=== PATIENT | female | born 1990 | race African-American/Black ===

== ENCOUNTER 2017-02-05 06:47 | Inpatient (IN) | payer MEDICAID, OTHER ==
[2017-02-05] VITALS (13 sets, daily range): BP systolic 89–110; BP diastolic 57–72; PULSE 61–97; RESP 18–20; TEMP 98.1–98.8
[~2017-02-05 06:47] MED LIST: AMOX500C PO; METR0.7512 VAGINAL; TERC0.8C VAGINAL
[2017-02-05] MEDS ORDERED: LACTATED RINGER'S 1000 ML INJ 1,000 ML IV SCH (07:37)
[2017-02-05] MEDS ORDERED: LACTATED RINGER'S 1000 ML INJ 1,000 ML IV PRN (07:37)
--- NOTE | 2017-02-05 07:37 | PD ---
HPI Chief Complaint Contractions with leaking from the vagina at around 0600 Date Seen: Feb 05, 2017 Time Seen: 07:34 Travel History International Travel<30 Days: No Contact w/Intl Traveler<30Days: No Known Affected Area: No History of Present Illness HPI 27-year-old who is at 37 weeks 4 days complains of contractions irregularly the began this morning associated with leaking of clear fluid per vagina at about 06 100 today. Patient denies any antepartum complications and she has had 2 prior uncomplicated spontaneous vaginal deliveries. She is group B strep positive with no drug allergies. Last cervical examination was 2 cm proximally 1 week ago Weeks Gestation: 37 Para: 2 : 3 History Past Medical History Medical History: Denies Significant Hx Obstetric History Obstetric History Spontaneous vaginal delivery 2, 5 lbs. 9 oz., 7 lbs. 2 oz. Past Surgical History Surgical History: No Previous Surgery Family History Family History: Negative Social History Alcohol Use: No Tobacco Use: No Substance Abuse: No Allergies-Medications (Allergen,Severity, Reaction): Coded Allergies: No Known Allergies (Unverified Adverse Reaction, Unknown, 01/31/17) Home Meds Active Scripts Metronidazole Vaginal Gel (Metronidazole Vaginal Gel) 0.75 % Gel, 1 APPL VAGINAL HS for Infection for 5 Days, #1 GM 1 [facility] Terconazole Vaginal Cream (Terconazole Vaginal Cream) 0.8 % Cream, 1 APPL VAGINAL HS for Fungal Infection, #20 GM 1 Refill For 3 days. Prov:Sigrid Coelho CNM [facility] 02/01/17 Amoxicillin (Amoxicillin) 500 Mg Cap, 500 MG PO QID for Infection for 7 Days, # 28 CAP 0 Refills Prov:Sigrid Coelho CNM [facility] 01/31/17 Discontinued Scripts Terconazole Vaginal Cream (Terconazole Vaginal Cream) 0.8 % Cream, 1 APPL VAGINAL HS for Fungal Infection, #20 GM 1 Refill For 3 days. Prov:Sigrid Coelho CNM [facility] 01/24/17 Review of Systems Except as stated in HPI: all other systems reviewed are Neg Physical Exam Narrative GENERAL: Well-nourished, well-developed patient. SKIN: Warm and dry. HEAD: Normocephalic and atraumatic. EYES: No scleral icterus. No injection or drainage. ENT: No nasal drainage noted. Mucous membranes pink. Airway patent. NECK: Supple, trachea midline. No JVD. CARDIOVASCULAR: Regular rate and rhythm without murmurs, gallops, or rubs. RESPIRATORY: Breath sounds equal bilaterally. No accessory muscle use. ABDOMEN/GI: Abdomen soft, non-tender, bowel sounds present, no rebound, no guarding Gravid to [34-] weeks size Fundal Height: [-] GENITOURINARY: External Genitalia: intact and normal in appearance BUS glands: [-Normal] Cervix: [-Posterior] Dilatation: [3-] Effacement: [-80] Station: [--3] Presentation: [-Vertex] Membranes: ruptured positive amnisure Uterine Contractions: [-Every 10 minutes] FHT's: Category: [1-] Baseline: [-140] Reactive: [Moderate-] Variability: [Moderate-] Decels: [-Absent] EXTREMITIES: No cyanosis or edema. BACK: Nontender without obvious deformity. No CVA tenderness. NEUROLOGICAL: Awake and alert. Motor and sensory grossly within normal limits. Five out of 5 muscle strength in all muscle groups. Normal speech. Data Data Vital Signs Reviewed: Yes Group B Strep: Positive MDM Medical Record Reviewed: Yes Plan 27-year-old who is at 37 weeks 4 days with spontaneous rupture membranes and positive group B strep Admit to labor with the initiation of antibiotic prophylaxis Diagnosis Diagnosis: Primary Impression: 37 weeks gestation of Additional Impressions: Premature rupture of membranes Positive testing for group B Streptococcus Meg Ambrosio MD Feb 05, 2017 07:37
[2017-02-05] MEDS ORDERED: PENICILLIN G POTASSIUM INJ 5,000,000 UNITS in SODIUM CHLORIDE 0.9% INJ 100 ML IV ONE (07:45)
[2017-02-05] MEDS ORDERED: LIDOCAINE HCL 1% 50 ML VIAL I-DERMAL PRN (07:45)
[2017-02-05] MEDS ORDERED: ONDANSETRON HCL 4 MG/2 ML VIAL IV PUSH PRN (07:45)
[2017-02-05] MEDS ORDERED: OXYTOCIN 30 UNITS-500ML PREMIX 500 ML IV ONE (07:45)
[2017-02-05] MEDS ORDERED: SODIUM CHLORID 0.9% 500 ML INJ 500 ML IV PRN (07:45)
[2017-02-05] MEDS ORDERED: MINERAL OIL 10 ML VIAL TOPICAL PRN (07:45)
[2017-02-05] MEDS ORDERED: LIDOCAINE HCL 1% 50 ML VIAL INFIL PRN (07:45)
[2017-02-05] MEDS ORDERED: CITRIC ACID-SODIUM CITRATE LIQ 30 ML UDC PO SCH (07:45)
[2017-02-05] MEDS ORDERED: SODIUM CHLOR 0.9% 1000 ML INJ 1,000 ML IV PRN (07:57)
[2017-02-05 08:39] LABS: AUTOMATED NEUTROPHIL # 3.8 TH/MM3 (1.8-7.7); BASOPHIL % 0.2 % (0.0-2.0); EOSINOPHIL % 0.5 % (0.0-4.0); HEMATOCRIT 34.4 % (35.0-46.0); HEMO FLAGS DIFF FINAL; LYMPH % 26.8 % (9.0-44.0); LYMPHOCYTE # 1.6 TH/MM3 (1.0-4.8); MEAN CELL VOLUME 87.4 FL (80.0-100.0); MEAN CORPUSCULAR HEMOGLOBIN 28.5 PG (27.0-34.0); MEAN CORPUSCULAR HGB CONC 32.6 % (32.0-36.0); MONO % 9.8 % (0.0-8.0); NEUT % 62.7 % (16.0-70.0); PLATELET COUNT 196 TH/MM3 (150-450); RED BLOOD COUNT 3.93 MIL/MM3 (4.00-5.30)
[2017-02-05] MEDS ORDERED: ZOFR8TAB PO (09:28)
[2017-02-05] MEDS ORDERED: PROM25TA10 PO (09:28)
[2017-02-05] MEDS ORDERED: OXYTOCIN 30 UNITS-500ML PREMIX 500 ML IV SCH ×2 (09:30→12:45)
[2017-02-05] MEDS ORDERED: ePHEDrine/NS 25 MG/5 ML SYR ONE (11:25)
[2017-02-05] MEDS ORDERED: fentaNYL 2MCG-BUPIV 0.125% INJ 100 ML ONE (11:25)
[2017-02-05] MEDS ORDERED: PENICILLIN G POTASSIUM INJ 2,500,000 UNITS in SODIUM CHLORIDE 0.9% INJ 100 ML IV SCH (11:45)
[2017-02-05] MEDS ORDERED: SODIUM CHLORIDE 0.9% FLUSH 10 ML FLUSH IV FLUSH PRN (12:45)
[2017-02-05] MEDS ORDERED: ZOLPIDEM TARTRATE 5 MG TAB PO PRN (12:45)
[2017-02-05] MEDS ORDERED: ACETAMINOPHEN 325 MG TAB PO PRN (12:45)
[2017-02-05] MEDS ORDERED: ALUMINUM/MAGNESIUM/SIMETH 30 ML CUP PO PRN (12:45)
[2017-02-05] MEDS ORDERED: DOCUSATE SODIUM 50 MG/SENNA 8.6 MG TAB PO PRN (12:45)
[2017-02-05] MEDS ORDERED: BENZOCAINE 20% TOPICAL SPRAY 60 ML CAN TOPICAL PRN (12:45)
[2017-02-05] MEDS ORDERED: ONDANSETRON ODT 4 MG TAB PO PRN (12:45)
[2017-02-05] MEDS ORDERED: WITCH HAZEL 50%/GLYCERIN 12.5% 40 PAD JAR TOPICAL PRN (12:45)
[2017-02-05] MEDS ORDERED: oxyCODONE/ACETAMINOPHEN 5 MG/325 MG TAB PO PRN ×2 (12:45)
--- NOTE | 2017-02-05 12:46 | PD.OB.DELI ---
Weeks gestation: 37 Gest age assessed date: Feb 05, 2017 Gest age assessed time: 12:00 Pt started active labor?: Yes Medical induction of labor?: Yes Artificial rupture of membrane: No Anesthesia: Epidural Episiotomy: None Vaginal Delivery: Normal Presentation: Occiput anterior Nuchal Cord: x1 Delayed cord clamping (45 sec): Yes Infant: Male Delivery date: Feb 05, 2017 Delivery time: 12:25 One Minute : 8 Five Minute : 9 Weight: 2855 Placenta: Manual removal, Intact, 3 vessel cord Laceration: No lacerations Estimated blood loss: 300 mL Additional Information Head delivered by maternal effort. Nuchal cord 1 appreciated and reduced. Anterior shoulder delivered without complications. Placental cord torn during the third stage. Placenta manually removed by Dr. Chambers. Placenta was intact. Uterus was explored and no remnants of the placenta were appreciated. No lacerations appreciated Shmuel Mitchell MD R1 Feb 05, 2017 12:46
[2017-02-05] MEDS ORDERED: ePHEDrine/NS 25 MG/5 ML SYR IV PUSH PRN (14:15)
[2017-02-05] MEDS ORDERED: DO NOT ADMINISTER ANTICOAGULANTS PRN (14:15)
[2017-02-05] MEDS ORDERED: NO SYSTEM NARCOTICS PRN (14:15)
[2017-02-05] MEDS ORDERED: fentaNYL 2MCG-BUPIV 0.125% 100 ML EPIDURAL SCH (14:15)
[2017-02-05] MEDS ORDERED: MEASLES, MUMPS, RUBELLA VACCINE 0.5 ML VIAL SQ ONE (16:00)
[2017-02-05] MEDS ORDERED: DIPHTH/TETANUS/ACEL PERTUSSIS (BOOSTER) 0.5 ML VIAL/PFS IM ONE (16:00)
[2017-02-05] MEDS: IBUPROFEN 800 MG TAB PO PRN (16:40)
[2017-02-05] MEDS ORDERED: SODIUM CHLORIDE 0.9% FLUSH 10 ML FLUSH IV FLUSH SCH (21:00)
[2017-02-06] MEDS: IBUPROFEN 800 MG TAB PO PRN ×2 (02:42→15:11)
[2017-02-06 08:00] VITALS: BP 103/58; PULSE 76; RESP 16; TEMP 98.3
--- NOTE | 2017-02-06 11:05 | HHI.OB ---
Subjective Post Day: 1 Remarks Patient is a 27-year-old delivered at 37 weeks and 4 days. Patient is day 1 after NVD. Patient's pain is well-controlled. Patient reports eating and drinking without any nausea or vomiting. Patient reports minimal bleeding. Patient has passed gas but no bowel movements. Patient is walking without lower extremity pain or shortness of breath. Patient reports desire for contraception through her outpatient provider and breast-feeding. Objective Vitals/I&O Vital Signs Date Time Temp Pulse Resp B/P (MAP) Pulse Ox O2 Delivery O2 Flow Rate FiO2 02/06/17 08:00 98.3 02/06/17 08:00 76 16 103/58 (73) 02/05/17 17:40 98.5 02/05/17 17:40 76 18 104/65 (78) 02/05/17 15:30 61 110/60 (77) 02/05/17 14:31 61 96/57 (70) 02/05/17 14:10 63 20 100/63 (75) 02/05/17 14:00 20 02/05/17 13:27 69 103/59 (74) 02/05/17 13:27 20 02/05/17 13:07 98.1 02/05/17 13:07 20 02/05/17 12:49 97 89/72 (78) 02/05/17 12:45 20 Objective Remarks GENERAL: Well-nourished, well-developed patient. CARDIOVASCULAR: Regular rate and rhythm without murmurs, gallops, or rubs. RESPIRATORY: Breath sounds equal bilaterally. No accessory muscle use. ABDOMEN/GI: Abdomen soft, non-tender. Fundus: Firm, non-tender at umbilicus. GENITOURINARY: Light to moderate bleeding. EXTREMITIES: No cyanosis or edema, non-tender, without signs of DVT. Medications and IVs Current Medications Medications (Trade) Dose Ordered Sig/Brandon Route Start Time Stop Time Status Last Admin Oxytocin 500 ml @ 0 mls/hr TITRATE IV 02/05/17 09:30 02/05/17 11:06 (NS Flush) 2 ml BID IV FLUSH 02/05/17 21:00 (NS Flush) 2 ml UNSCH PRN IV FLUSH 02/05/17 12:45 (Tylenol) 650 mg Q4H PRN PO 02/05/17 12:45 02/05/17 23:28 (Motrin) 800 mg Q8H PRN PO 02/05/17 12:45 02/06/17 02:42 (Percocet 5-325 Mg) 1 tab Q4H PRN PO 02/05/17 12:45 (Percocet 5-325 Mg) 2 tab Q4H PRN PO 02/05/17 12:45 (Americaine 20% Top Spr) 1 spray Q4H PRN TOPICAL 02/05/17 12:45 (Tucks Pads) 1 applic QID PRN TOPICAL 02/05/17 12:45 (Nellie-Colace) 2 tab Q12H PRN PO 02/05/17 12:45 (Ambien) 5 mg HS PRN PO 02/05/17 12:45 (Mag-Al Plus Susp Liq) 15 ml Q8H PRN PO 02/05/17 12:45 (Zofran Odt) 4 mg Q6H PRN PO 02/05/17 12:45 Miscellaneous Information No systemic narcotics to be given except... UNSCH PRN .XX 02/05/17 14:15 02/06/17 14:14 Miscellaneous Information DO NOT ADMINISTER ANY ANTICOAGUL... UNSCH PRN .XX 02/05/17 14:15 02/06/17 14:14 Fentanyl/ Bupivacaine HCl 100 ml @ 0 mls/hr TITRATE EPIDURAL 02/05/17 14:15 (ePHEDrine/NS 25 MG/5 ML SYR) 10 mg UNSCH PRN IV PUSH 02/05/17 14:15 02/06/17 14:14 Assessment/Plan Problem List: (1) NVD (normal vaginal delivery) ICD Codes: O80 - Encounter for full-term uncomplicated delivery (2) Term ICD Codes: Z34.80 - Encounter for supervision of other normal , unspecified trimester Status: Acute (3) Positive testing for group B Streptococcus ICD Codes: B95.1 - Streptococcus, group B, as the cause of diseases classified elsewhere Status: Acute (4) Premature rupture of membranes ICD Codes: O42.90 - Premature rupture of membranes, unspecified as to length of time between rupture and onset of labor,unspecified weeks of gestation Status: Acute Assessment and Plan Patient is a 27-year-old delivered at 37 weeks and 4 days. Patient is day 1 after NVD. Patient was counseled to do 6 weeks of pelvic rest. Patient was counseled to follow up in 6 weeks. Patient requested follow-up and contraception. --AF VSS --Continue routine care --Motrin and Percocet when necessary for pain --Encourage OOB --Pelvic rest for 6 weeks will need follow-up appointment at that time. --Contraception: pt will arrange through her outpatient provider --Anticipate discharge tomorrow d/w Dr. Reyes Thompson,Teddy Leone MD R2 Feb 06, 2017 11:05
[2017-02-06 19:25] VITALS: BP 107/73; PULSE 79; RESP 16; TEMP 98.3; O2SAT 99
[2017-02-07] MEDS: IBUPROFEN 800 MG TAB PO PRN ×2 (01:30→13:33)
[2017-02-07 08:00] VITALS: BP 98/56; PULSE 60; RESP 16; TEMP 98.3
[2017-02-07] MEDS ORDERED: IBUP1TAB7 PO (08:08)
--- NOTE | 2017-02-07 08:09 | HHI.DCPOC ---
Discharge Care Plan Report Symptoms to Your Doctor -Temperature above 100.5 degrees -Redness, of incision or excessive or foul smelling drainage -Unusual pain or calf pain -Increased vaginal bleeding -Painful or difficulty urinating -Feelings of extreme sadness or anxiety after 2 weeks Goals to Promote Your Health * To prevent worsening of your condition and complications * To maintain your health at the optimal level Directions to Meet Your Goals Take your medications as prescribed Follow your dietary instruction Follow activity as directed Ensure plenty of rest for recovery Drink fluids for hydration Keep your appointments as scheduled Take your immunizations and boosters as scheduled If your symptoms worsen call your PCP, if no PCP go to Urgent Care Center or Emergency Room Smoking is Dangerous to Your Health. Avoid second hand smoke Call the 24-hour crisis hotline for domestic abuse at Shmuel Mitchell MD R1 Feb 07, 2017 08:09
--- NOTE | 2017-02-07 08:11 | HHI.OB ---
Subjective Remarks Patient is a 27-year-old delivered at 37 weeks and 4 days. Patient is day 2 after . Patient's pain is well-controlled. Patient reports eating and drinking without any nausea or vomiting. Patient reports minimal bleeding. Patient has passed gas and bowel movements. Patient is walking without lower extremity pain or shortness of breath. Patient reports desire for contraception arranged by outside provider and plans on breast-feeding. Objective Vitals/I&O Vital Signs Date Time Temp Pulse Resp B/P (MAP) Pulse Ox O2 Delivery O2 Flow Rate FiO2 02/06/17 19:25 98.3 79 16 107/73 (84) 99 Objective Remarks GENERAL: Well-nourished, well-developed patient. CARDIOVASCULAR: Regular rate and rhythm without murmurs, gallops, or rubs. RESPIRATORY: Breath sounds equal bilaterally. No accessory muscle use. ABDOMEN/GI: Abdomen soft, non-tender. Fundus: Firm, non-tender at umbilicus. GENITOURINARY: Light to moderate bleeding. EXTREMITIES: No cyanosis or edema, non-tender, without signs of DVT. Medications and IVs Current Medications Medications (Trade) Dose Ordered Sig/Brandon Route Start Time Stop Time Status Last Admin Oxytocin 500 ml @ 0 mls/hr TITRATE IV 02/05/17 09:30 02/05/17 11:06 (NS Flush) 2 ml BID IV FLUSH 02/05/17 21:00 (NS Flush) 2 ml UNSCH PRN IV FLUSH 02/05/17 12:45 (Tylenol) 650 mg Q4H PRN PO 02/05/17 12:45 02/05/17 23:28 (Motrin) 800 mg Q8H PRN PO 02/05/17 12:45 02/07/17 01:30 (Percocet 5-325 Mg) 1 tab Q4H PRN PO 02/05/17 12:45 02/07/17 01:31 (Percocet 5-325 Mg) 2 tab Q4H PRN PO 02/05/17 12:45 (Americaine 20% Top Spr) 1 spray Q4H PRN TOPICAL 02/05/17 12:45 (Tucks Pads) 1 applic QID PRN TOPICAL 02/05/17 12:45 (Nellie-Colace) 2 tab Q12H PRN PO 02/05/17 12:45 (Ambien) 5 mg HS PRN PO 02/05/17 12:45 (Mag-Al Plus Susp Liq) 15 ml Q8H PRN PO 02/05/17 12:45 (Zofran Odt) 4 mg Q6H PRN PO 02/05/17 12:45 Fentanyl/ Bupivacaine HCl 100 ml @ 0 mls/hr TITRATE EPIDURAL 02/05/17 14:15 Assessment/Plan Problem List: (1) NVD (normal vaginal delivery) ICD Codes: O80 - Encounter for full-term uncomplicated delivery (2) Term ICD Codes: Z34.80 - Encounter for supervision of other normal , unspecified trimester Status: Acute (3) Positive testing for group B Streptococcus ICD Codes: B95.1 - Streptococcus, group B, as the cause of diseases classified elsewhere Status: Acute (4) Premature rupture of membranes ICD Codes: O42.90 - Premature rupture of membranes, unspecified as to length of time between rupture and onset of labor,unspecified weeks of gestation Status: Acute Assessment and Plan Patient is a 27-year-old delivered at 37 weeks and 4 days. Patient is day 2 after NVD. Patient was counseled to do 6 weeks of pelvic rest. Patient was counseled to follow up in 6 weeks. Patient requested follow-up and contraception. --AF VSS --Continue routine care --Motrin and Percocet when necessary for pain --Encourage OOB --Pelvic rest for 6 weeks will need follow-up appointment at that time. --Contraception: pt will arrange through her outpatient provider --Anticipate discharge later today d/w Dr. Sylvester Discharge Planning Likely discharge today Shmuel Mitchell MD R1 Feb 07, 2017 08:11
[2017-02-07 09:00] VITALS: O2SAT 100
== END 2017-02-07 14:48 | disposition home or self-care (01) | DRG 767 ==
LOC: HOBED 06:47 → H2EA 07:40 → H1EA 17:11
PROVIDERS: ADMIT Obstetrics & Gynecology Obstetrics; ATTEND Obstetrics & Gynecology Obstetrics
PROC: 10E0XZZ Delivery of Products of Conception, External Approach (ICD-10-PCS; principal; 2017-02-05)
PROC: 10D17Z9 Manual Extraction of Products of Conception, Retained, Via Natural or Artificial Opening (ICD-10-PCS; 2017-02-05)
PROC: 3E0R3BZ Introduction of Anesthetic Agent into Spinal Canal, Percutaneous Approach (ICD-10-PCS; 2017-02-05)
PROC: 00HU33Z Insertion of Infusion Device into Spinal Canal, Percutaneous Approach (ICD-10-PCS; 2017-02-05)
DX: O42.02 Full-term premature rupture of membranes, onset of labor within 24 hours of rupture (principal); O99.820 Streptococcus B carrier state complicating pregnancy; O43.893 Other placental disorders, third trimester; O69.81X0 Labor and delivery complicated by cord around neck, without compression, not applicable or unspecified; Z3A.37 37 weeks gestation of pregnancy; Z37.0 Single live birth
CPT/HCPCS: 80307; 84112; 85025; 86592; J2540; J2590; J7120